=== PATIENT | male | born 1970 | race Caucasian/White ===

== ENCOUNTER 2022-06-20 06:28 | Observation (INO) ==
--- NOTE | 2022-06-08 12:23 | Anesthesiology Consultation ---
Date of Service June 08, 2022 Assessment & Plan (1) Encounter for pre-operative examination: COVID screening: Per assessment on 06/08: No known COVID-19 positive contacts or current COVID-19 related symptoms. Travel screen- returned from [place], [place], [place] (via plane) for work. Patient vaccinated. At surgeon discretion if preop Covid testing being done. Chart Review Chart Review: Acceptable Risk for Surgery and Patient NOT seen in Pre Admission Testing History Surgery Operation Date: 06/20/22 07:55 Proposed Procedures p Robotic Laparoscopic Assisted Radical Retropubic Prostatectomy, Possible Open, Possible Pelvic Lymph Node Dissection, Possible Suprapubic Tube Placement - Alex Bliss MD Height/Weight Height: 5 ft 9 in Weight: 90.718 kg Allergies Allergy/AdvReac Type Severity Reaction Status Date / Time No Known Allergies Allergy Verified 06/20/22 06:48 Medications Home Medications Medication Instructions Recorded Confirmed Last Taken alfuzosin 10 mg tablet,extended 10 mg PO QPM 06/08/22 06/20/22 06/19/22 18:00 release 24 hr Past Medical History Medical History Benign localized prostatic hyperplasia with lower urinary tract symptoms (LUTS) Carcinoma of prostate Elevated PSA Past Family History Family History Mother Ovarian cancer Grandfather (Paternal) Cancer Prostate Cancer Other No family history of adverse response to anesthesia Past Surgical History Surgical History H/O prostate biopsy malignant H/O vasectomy History of colonoscopy 12/2021 History of open reduction and internal fixation (ORIF) procedure right elbow--hardware removed History of tooth extraction History of wisdom tooth extraction Status post hardware removal Social History Smoking Status: Never smoker Do You Dip or Chew Tobacco: No Hx Alcohol Use: Yes Alcohol type: beer alcohol intake frequency: a few times a month Hx Substance Use: No substance use type: does not use Physical Exam Vital Signs Last Vital Signs Temp 37.1 C 06/20/22 06:50 Pulse 85 06/20/22 06:50 Resp 18 06/20/22 06:50 BP 130/76 06/20/22 06:50 Pulse Ox 98 06/20/22 06:50 O2 Del Method 06/20/22 06:50 Lab Results Anesthesia Preop Results Results Anesthesia Widget: WBC 6.30 K/ul (4.8-10.8) 05/23/22 Hgb 15.3 g/dl (14.0-18.0) 05/23/22 Hct 45.4 % (40.1-51.0) 05/23/22 Plt 149 K/uL (130-400) 05/23/22 Na 140 mmol/L (136-145) 05/23/22 K 3.7 mmol/L (3.5-5.1) 05/23/22 Cl 106 mmol/L (98-107) 05/23/22 CO2 30 mmol/L (21-32) 05/23/22 BUN 16 mg/dl (6-23) 05/23/22 Creat 1.00 mg/dl (0.6-1.4) 05/23/22 Glucose Level 94 mg/dl (70-99(Fasting)) 05/23/22 Urine Color Yellow 05/23/22 Urine Appearance Clear (Clear) 05/23/22 Urine pH 6.0 (4.5-7.5) 05/23/22 Urine Specific [place] 1.022 (1.000-1.030) 05/23/22 Urine Protein Negative (Negative) 05/23/22 Urine Glucose (UA) Negative (Negative) 05/23/22 Urine Ketones Negative (Negative) 05/23/22 Urine Blood Negative (Negative) 05/23/22 Urine Nitrite Negative (Negative) 05/23/22 Urine Bilirubin Negative (Negative) 05/23/22 Urine Urobilinogen Negative (Negative) 05/23/22 Urine Leukocyte Esterase Negative (Negative) 05/23/22 SARS-CoV-2, RNA, NAAT NEGATIVE (NEGATIVE) 06/20/22 Blood Type Pending 06/20/22 Antibody Screen Pending 06/20/22 Testing Electrocardiogram Date: 05/23/22 NSR at 72bpm. iRBBB. Chest X-Ray Date: 05/23/22 Findings: + NAD
[~2022-06-20 06:28] MED LIST: HEPARIN SOD 5,000 UNIT/0.5 ML VIAL SQ SCH; LACTATED RINGER'S 1,000 ML IV SCH; ceFAZolin 2000MG 2,000 MG/15 ML SYR IV SCH
[2022-06-20] MEDS ORDERED: LIDOCAINE 2% 20 MG/ML 5 ML SYR IV ONE (06:50)
[2022-06-20] MEDS ORDERED: ROCURONIUM BROMIDE 10 MG/ML 5 ML VIAL IV ONE ×2 (06:50→08:29)
[2022-06-20] MEDS ORDERED: MIDAZOLAM HCL 1 MG/ML 2ML VIAL ONE ×2 (06:50→08:01)
[2022-06-20] MEDS ORDERED: PROPOFOL IV EMULSION 10 MG/ML 20 ML VIAL IV ONE (06:50)
[2022-06-20] MEDS ORDERED: fentaNYL citrate 100 MCG/2 ML VIAL ONE (06:50)
--- NOTE | 2022-06-20 07:03 | History & Physical Report ---
Date of Service June 20, 2022 Assessment & Plan (1) Carcinoma of prostate: Plan: plan for robotic prostatectomy reviewed risks, benefits, and expectations History of Present Illness Primary Care Provider: Graciela Del Angel Gl 6 prostate ca here today for prostatectomy Allergies Allergy/AdvReac Type Severity Reaction Status Date / Time No Known Allergies Allergy Verified 06/20/22 06:48 Home Medications Medication Instructions Recorded Confirmed Type alfuzosin 10 mg tablet,extended 10 mg PO QPM 06/08/22 06/20/22 History release 24 hr Past Med/Surg History Medical History Benign localized prostatic hyperplasia with lower urinary tract symptoms (LUTS) Carcinoma of prostate Elevated PSA Surgical History H/O prostate biopsy malignant H/O vasectomy History of colonoscopy 12/2021 History of open reduction and internal fixation (ORIF) procedure right elbow--hardware removed History of tooth extraction History of wisdom tooth extraction Status post hardware removal Family History Mother Ovarian cancer Grandfather (Paternal) Cancer Prostate Cancer Other No family history of adverse response to anesthesia Social History Smoking Status: Never smoker Second Hand Exposure: Yes (FATHER SMOKED); Do You Dip or Chew Tobacco: No; Hx Alcohol Use: Yes Alcohol type: beer Hx Substance Use: No Preferred Language: Belgian Communication Ability: Effective Hearing Ability: Normal Tree Worker Required: No Beliefs That Will Affect Care: None marital status: Current Living Situation: Spouse and Family Current Living Situation Comment: Lives with and daughter current occupational status: employed How many Children do You have: 1 Other Information That Helps Us Care for You: No Feels Safe at Home: Yes Safety Concerns: Feels Safe At This Time Diet Comment: Intermittent fast during the past year weight has: remained stable Physical Activity Frequency Comment: Bike rides when weather permitting Assistive Devices: Glasses Physical Exam Constitutional: well developed and well nourished Neck: neck nontender Respiratory: normal respiratory effort; no respiratory distress and does not use accessory muscles Cardiovascular: Rate/Rhythm: regular rate Vessels: radial pulses present Extremities: no edema Gastrointestinal (Abdomen): Inspection/Auscultation: abdomen normal to inspection Percussion/Palpation: abdomen soft; abdomen nontender and no guarding Musculoskeletal: Head/Neck/Chest: normocephalic and head atraumatic Extremities: extremities normal to inspection Skin: no rashes and no lesions Trauma: no evidence of skin trauma Neurologic: awake; not obtunded Speech / Cognition: normal speech Motor/Sensory: no tremor Psychiatric: Orientation: alert and oriented x 3 Genitourinary: no CVA tenderness Lymphatic: no lymphadenopathy Results & Data ([facility]) Vital Signs (Past 12 Hours) Vital Signs Temp Pulse Resp BP Pulse Ox O2 Del Method 06/20/22 06:50 37.1 C 85 18 130/76 98 Room Air
[2022-06-20] MEDS ORDERED: ACETAMINOPHEN 1000 MG/100 ML IV IV ONE (07:06)
[2022-06-20] MEDS ORDERED: HYDROmorphone INJ 1 MG/ML SYRINGE IV PRN (07:17)
[2022-06-20] MEDS ORDERED: ATROPINE SULFATE 0.1 MG/ML 10ML SYR IV PRN (07:17)
[2022-06-20] MEDS ORDERED: ONDANSETRON INJ 2 MG/ML 2 ML VIAL IV PRN ×2 (07:17→12:43)
[2022-06-20] MEDS ORDERED: ePHEDrine sulfate 50 MG/ML AMP IV PRN (07:17)
[2022-06-20] MEDS ORDERED: fentaNYL citrate 100 MCG/2 ML VIAL IV PRN (07:17)
[2022-06-20] MEDS ORDERED: BUPIVACAINE 0.5 % 5 MG/1 ML MPF 30ML VIAL ONE (07:36)
[2022-06-20] MEDS ORDERED: KETAMINE 50 MG/5 ML SYRINGE ONE (08:29)
[2022-06-20] MEDS ORDERED: ONDANSETRON INJ 2 MG/ML 2 ML VIAL ONE (08:39)
[2022-06-20] MEDS ORDERED: DEXAMETHASONE SOD INJ 4 MG/ML VIAL ONE (08:39)
[2022-06-20] MEDS ORDERED: NEOSTIGMINE METHYLSULFATE 1 MG/ML 10ML VIAL ONE (09:20)
[2022-06-20] MEDS ORDERED: GLYCOPYRROLATE 0.2 MG/ML VIAL ONE (09:20)
[2022-06-20] MEDS ORDERED: HYDROmorphone INJ 2 MG/ML SYR/VIAL ONE (09:56)
[2022-06-20] MEDS ORDERED: BELLADONNA/OPIUM SUPP 60 MG SUPP PR ONE (10:11)
--- NOTE | 2022-06-20 11:42 | Operative Report ---
PG Post Operative Report Pre & Post Diagnosis Operation Date: 06/20/22 07:55 Pre-Op Diagnosis: Carcinoma of Prostate Post-Op Diagnosis: Carcinoma of Prostate I identified the patient and participated in the time-out.: Yes Procedure Operation Date: 06/20/22 07:55 Actual Procedures p Robotic Laparoscopic Assisted Radical Retropubic Prostatectomy, Bilateral Pel best Lymph Node Dissection(Not Applicable) - Alex Bliss MD Surgeon Alex Bliss MD Senior Buyer Planner Vanessa Chavis Estimated Blood Loss 100 Findings Consistent with Post-Op Diagnosis Specimens 1. Periprostatic fat 2. Right pelvic lymph nodes 3. Left pelvic lymph nodes 4. Prostate and seminal vesicles Description of Procedure The patient was identified in the preoperative holding area, appropriate informed consents were reviewed and completed, and he was transported to the operating suite. Subcutaneous heparin was administered in the pre-operative holding area. Upon arrival in the operating suite, he received appropriate antibiotics and general anesthesia. He was positioned in dorsal lithotomy, a B&O suppository was inserted after digital rectal exam, and he was prepped and draped in standard fashion. A Saunders catheter was inserted in the sterile field. A Veress needle was passed per umbilicus with uniform insufflation of the abdomen to 15mmHg. He was placed in steep Trendelenburg position. A periumbilical incision was then made to accommodate a 12mm Visiport with 10mm 0degree laparoscope. Inspection of the abdomen was carried out, and there was no evidence of traumatic entry or injury secondary to the Veress needle. After confirming a clear anterior abdominal wall, ports were subsequently placed in standard robotic prostatectomy fashion without incident. To begin the robotic portion of the case, the left lateral aspect of the sigmoid was mobilized off of the left pelvic side wall to allow the pouch of Isauro to be appropriately visualized. I then made an incision in the pouch of Isauro, overlying the seminal vesicles. Both SVs as well as the ampullae of the vasa were entirely dissected, with the vasa transected 3cm from the prostate. The medial umbilical ligaments were then controlled with bipolar electrocautery just inferior to the umbilicus. Following cauterization, they were divided utilizing monopolar cautery. A peritoneal incision was carried from this location to the medial aspect of the internal inguinal rings bilaterally with care to avoid opening through the ring. This incision was concluded when the vas deferens was reached. Dissection of the bladder and prostate off of the posterior aspect of the pubic arch was completed allowing full visualization of the prostate. The fat overlying the prostate was removed en bloc and passed off the table as a specimen labeled "periprostatic fat". The endopelvic fascia was cleared during this portion of the procedure, and subsequently opened - first on the right and then the left. The incision through the endopelvic fascia began near the prostate-bladder junction and was carried to the apex with extreme care to preserve all lateral levator musculature as well as the periurethral musculature and sphincter complex. I additionally preserved the puboprostatic ligaments. I then controlled the DVC with a 3-0 V-lock suture in overlapping/ figure of 8 fashion. The lymph node dissection was then conducted. External iliac vessels were identified on the pelvic side wall. The packet of fat and lymphatic tissue that resides just under the iliac vein was elevated and off of the vein with a split and roll technique. The packet was dissected laterally to the circumflex vein and distally to the obturator nerve which was preserved. The proximal aspect of the packet was carried towards the bifurcation of the iliac vessels. A combination of monopolar and bipolar cautery were used to assist with control. After completing the dissection on both sides, the packets were collected and passed off of the table as specimens labeled "pelvic lymph nodes". My attention then returned to the prostate, with identification of the bladder neck aided by gentle traction on the Saunders catheter and lateral to medial pressure at the presumed level of the bladder neck with the robotic instruments. An anterior cystotomy was made, the Saunders balloon deflated and the catheter guided through the incision to allow anterior retraction. I attempted to preserve maximal bladder neck musculature as I circumferentially dissected around the bladder neck. After creating the anterior cystotomy I immediately noted an intravesical median lobe. I carefully dissected around the lateral aspects of this and I utilized a 2-0 Vicryl suture to help elevate the median lobe. This allowed dissection behind the posterior aspect of it with care to avoid encroachment upon the ureteral orifices. After dissecting through the posterior aspect of the bladder mucosa I was able to carried this dissection down until I encountered my prior dissection of the seminal vesicles and vasa. I elevated the structures through the opening and proceeded to narrow the vascular pedicles as I would in a standard case. An incision in the lateral prostatic fascia was then made bilaterally to facilitate control of the vascular pedicles and preservation of the nerve bundles. Vasculature running along the posterior/lateral aspect of the prostate was preserved as well as the tissue containing the nerves. The pedicles were then controlled with a series of Weck clips. The apical attachments of the prostate were remaining at that stage. The DVC was divided after control with bipolar cautery over the prostate. Continuous inspection from anterior and lateral views allowed me to closely follow the apical contour of the prostate and maximally preserve urethral length and tissue. The prostate was entirely freed at that point, and collected in an EndoCatch bag before being moved out of the field of vision. Hemostasis was confirmed and anastomosis of the bladder and urethra was completed utilizing a double armed V- Lock stitch. Of note, prior to anastomosis of the bladder I did place a 3-0 Vicryl hptasl-ml-vlilt suture on each lateral aspect of the bladder neck to reconstruct and narrow it. A new Saunders catheter was inserted and the anastomosis tested with irrigation. There was no evidence of leak. A katherine style stitch was placed bilaterally to functionally marsupialize the area of the lymph node dissection. The robot was undocked, the specimen extracted through expansion of the florencia- umbilical camera port. The fascia was closed with a series of 0-PDS figure of 8 stitches. The right city carrier assistant port was closed in two layers - with a figure of 8 0-Vicryl to reapproximate the fascia followed by 4-0 Monocryl to close the skin. Monocryl was used to close all other skin incisions. All wounds were dressed with Dermabond. The case was concluded and the patient taken to the PACU in stable condition. Vanessa Chavis was present and scrubbed throughout the case I attest to the content of the Intraoperative Record and any orders documented therein. Any exceptions are noted below.
[2022-06-20 12:09] LABS: Hematocrit (blood only) 42.5 % (40.1-51.0); Hemoglobin 14.7 g/dl (14.0-18.0); Mean Corpuscular Hemoglobin 29.8 pg (25.0-34.0); Mean Corpuscular Hgb Conc 34.6 g/dL (32.0-36.0); Mean Platelet Volume 10.7 fL (9.4-12.4); Platelet Count 145 K/uL (130-400); RDW Coefficient of Variation 12.2 % (11.5-14.5); RDW Standard Deviation 38.6 fL (36.4-46.3); Red Blood Count 4.94 M/uL (4.63-6.08); White Blood Count 9.57 K/ul (4.8-10.8)
[2022-06-20 12:32] LABS: Calcium 8.5 mg/dl (8.5-10.1); Creatinine Clr Calc Pharmacy 98.3 ml/min; Est GFR (African American) 101.3 ml/min; Est GFR (Non-African American) 87.4 ml/min; Potassium 4.2 mmol/L (3.5-5.1)
[2022-06-20 12:34] LABS: Basophils # (auto) 0.03 K/uL (0-0.2); Basophils % (auto) 0.3 %; Eosinophils # (auto) 0.01 K/uL (0-0.50); Eosinophils % (auto) 0.1 %; Immature Granulocytes # (auto) 0.03 K/uL (0.00-0.02); Immature Granulocytes % (auto) 0.3 %; Lymphocytes # (auto) 0.47 K/uL (1.2-3.4); Lymphocytes % (auto) 4.9 %; Monocytes # (auto) 0.15 K/uL (0.24-0.82); Monocytes % (auto) 1.6 %; Neutrophils # (auto) 8.88 K/uL (1.4-6.5); Neutrophils % (auto) 92.8 %
[2022-06-20] MEDS ORDERED: oxyCODONE HCL IR 5 MG TAB (IMMEDIATE RELEASE) PO PRN ×2 (12:43)
[2022-06-20] MEDS ORDERED: MoRPHine SULFATE 2 MG/ML CARP IV PRN ×2 (12:43)
--- NOTE | 2022-06-20 13:26 | Anesthesiology Progress Note ---
Date of Service June 20, 2022 Anesthesia Post Procedure Vital Signs Vital Signs: Temp Pulse Pulse Resp BP Pulse Ox O2 Del Method 06/20/22 12:59 83 19 109/63 96 Room Air 06/20/22 12:45 36.3 C L 88 22 100/70 96 Room Air 06/20/22 12:25 80 17 111/62 94 Room Air 06/20/22 12:35 83 17 108/61 94 Room Air 06/20/22 12:15 36.3 C L 70 23 110/61 97 Room Air 06/20/22 12:05 74 20 113/65 97 Room Air 06/20/22 11:55 75 22 127/69 100 Oxymask 06/20/22 11:45 82 18 131/71 100 Oxymask 06/20/22 11:36 36.5 C 92 H 20 130/75 100 Oxymask 06/20/22 06:50 37.1 C 85 18 130/76 98 Room Air O2 Flow Rate 06/20/22 12:59 06/20/22 12:45 06/20/22 12:25 06/20/22 12:35 06/20/22 12:15 06/20/22 12:05 06/20/22 11:55 4 06/20/22 11:45 10 06/20/22 11:36 10 06/20/22 06:50 Transfer of Care Handoff Completed per policy Notes Mental Status: alert / awake / arousable and participated in evaluation Patient Amnestic to Procedure: Yes Nausea / Vomiting: adequately controlled Pain: adequately controlled Airway Patency, RR, SpO2: stable & adequate BP & HR: stable & adequate Hydration State: stable & adequate Anesthetic Complications: no major complications apparent
[2022-06-20] MEDS: ACETAMINOPHEN 325 MG TAB PO SCH ×3 (14:11→23:45)
[2022-06-20] MEDS: LACTATED RINGER'S 1,000 ML IV SCH (14:11)
[2022-06-20] MEDS: ceFAZolin 2000MG 2,000 MG/15 ML SYR IV SCH ×2 (16:23→23:49)
[2022-06-20] MEDS: HEPARIN SOD 5,000 UNIT/0.5 ML VIAL SQ SCH (20:01)
[2022-06-21] MEDS: ACETAMINOPHEN 325 MG TAB PO SCH (05:48)
[2022-06-21] MEDS: LACTATED RINGER'S 1,000 ML IV SCH ×2 (05:58→09:11)
[2022-06-21 07:05] LABS: Basophils # (auto) 0.02 K/uL (0-0.2); Basophils % (auto) 0.2 %; Eosinophils # (auto) 0.05 K/uL (0-0.50); Eosinophils % (auto) 0.5 %; Hematocrit (blood only) 39.3 % (40.1-51.0); Hemoglobin 13.6 g/dl (14.0-18.0); Immature Granulocytes # (auto) 0.02 K/uL (0.00-0.02); Immature Granulocytes % (auto) 0.2 %; Lymphocytes # (auto) 1.27 K/uL (1.2-3.4); Lymphocytes % (auto) 13.5 %; Mean Corpuscular Hemoglobin 30.2 pg (25.0-34.0); Mean Corpuscular Hgb Conc 34.6 g/dL (32.0-36.0); Mean Corpuscular Volume 87.3 fL (80.0-100.0); Mean Platelet Volume 10.5 fL (9.4-12.4); Monocytes # (auto) 0.85 K/uL (0.24-0.82); Monocytes % (auto) 9.1 %; Neutrophils # (auto) 7.17 K/uL (1.4-6.5); Neutrophils % (auto) 76.5 %; Platelet Count 148 K/uL (130-400); RDW Coefficient of Variation 12.2 % (11.5-14.5); RDW Standard Deviation 39.1 fL (36.4-46.3); White Blood Count 9.38 K/ul (4.8-10.8)
[2022-06-21 07:27] LABS: BUN Creatinine Ratio 11.8 (10-20); Calcium 8.6 mg/dl (8.5-10.1); Creatinine Clr Calc Pharmacy 105.7 ml/min; Est GFR (African American) 110.6 ml/min; Est GFR (Non-African American) 95.4 ml/min; Potassium 4.2 mmol/L (3.5-5.1)
[2022-06-21] MEDS: HEPARIN SOD 5,000 UNIT/0.5 ML VIAL SQ SCH (08:05)
[2022-06-21] MEDS ORDERED: DOCUSATE SODIUM 100 MG CAP PO ONE (08:41)
--- NOTE | 2022-06-21 11:23 | Urology Progress Note ---
Date of Service June 21, 2022 Assessment & Plan (1) Carcinoma of prostate: Plan: POD #1 s/p prostatectomy - doing great - d/c home this AM Admission and Anticipated Discharge Date Admission Date: June 20, 2022 Subjective Doing great after his prostatectomy no pain ambulatory hungry anxious to go home urine clear Physical Exam Physical Exam: abd soft, incisions appropriate urine clear Results & Data ([facility]) Vital Signs (Past 12 Hours) Vital Signs Temp Pulse Resp BP Pulse Ox O2 Del Method 06/21/22 10:54 36.6 C 61 18 111/67 96 06/21/22 07:16 36.6 C 61 18 111/67 96 Room Air 06/21/22 02:30 37.1 C 80 18 105/61 95 Room Air PG Care Time/CCT Total # of Minutes Spent Total Time Spent with Patient: Total time spent is greater than 50% in coordination of care (as documented) at patient's floor/unit and/or counseling patient: Coding Level of Care Code None Diagnoses Carcinoma of prostate C61
--- NOTE | 2022-06-23 11:44 | Discharge Summary ---
Date of Service June 23, 2022 Admission HPI Per Admitting Provider Gl 6 prostate ca here today for prostatectomy Principal Diagnosis Prostate cancer Discharge Data Allergies Allergy/AdvReac Type Severity Reaction Status Date / Time No Known Allergies Allergy Verified 06/20/22 06:48 Procedures Performed Operation Date: 06/20/22 07:55 Actual Procedures p Robotic Laparoscopic Assisted Radical Retropubic Prostatectomy, Bilateral Pelvic Lymph Node Dissection(Not Applicable) - Alex Bliss MD Hospital Course (1) Carcinoma of prostate: Plan Patient admitted for a robotic prostatectomy - details of the procedure as dictated previously in my operative report - in summary, he tolerated the procedure very well - he was in stable condition overnight with appropriate urine output and stable labs - he was subsequently discharged home with a peacock catheter - he was in stable condition at the time of discharge Total Time Total Time Spent Total Time Spent (In Minutes): 15 Discharge Plan Discharge Items Patient Disposition: Home - Self-Care Reason For Visit: POST OP Discharge Diagnosis: Prostate cancer, s/p radical prostatectomy Activity: Per Instructions section Lifting: No more than 25 pounds Bathing Comment: Okay to shower after discharge, no tub bath or soaking Sexual Activity: Wait until after follow-up appointment Exercise/Sports: Wait until after follow-up appointment Driving/Machine Use: No driving while taking prescription pain medication Non-emergency contact: Surgeon and Urologist Call non-emergency contact if: your pain is not controlled, your pain is worse cherry, you have a fever, your temperature is above 101, your wound has increased redness, your wound has increased drainage and your wound pain has increased Follow-up/Referrals: Graciela Del Angel [Primary Care Provider] - Diet: Regular Addtl Attending Provider Instructions: Please take all medications as prescribed and keep all follow-ups as scheduled. Please call our office at [phone] with any questions, concerns or need to reschedule appointments for any reason. We are happy to assist you. We have sent an antibiotic (Ciprofloxacin) to your pharmacy of choice. Please begin antibiotic as prescribed the day BEFORE your scheduled voiding trial at [facility]. Please continue antibiotic every 12 hours through the day AFTER your voiding trial. You can discontinue your Alfuzosin. You can take Tylenol 650 mg every 6-8 hours for pain. Do not exceed 3000 mg of Tylenol in 24 hours. A prescription pain medication (Percocet) was sent to your pharmacy to take as needed for breakthrough pain. Do not drive if taking this medication. This medication also contains Tylenol, so do not exceed 3000 mg of Tylenol in 24 hours. Activity: We recommend having someone with you for the first few days after surgery to help care for you. For the first 2 weeks after surgery, we would like you to get up and walk around your house. However, we recommend limit physical activity that would increase your heart rate. This will allow your body to rest and heal. Take naps if you feel tired. Don't lift anything heavier than 10 pounds, mow the law or ride a bicycle until your follow-up appointment. Please avoid long car rides. Home Care: Unless directed otherwise, drink 6 to 8 glasses of water a day (enough to keep your urine light colored). This will also help keep a healthy flow of urine. We recommend using a stool softener for the first two weeks to avoid constipation. Peacock Catheter or Suprapubic Catheter care: Keep the catheter well secured with either a leg back or leg strap with large bag. Empty your bag when it's about half full. You may notice some blood in the bag. This is normal after surgery and while the catheter is in place. Use mild soap (such as Dove or Dial) and water to wash the catheter and the head of your penis daily, or more frequently if needed. Return to your normal diet, we encourage good protein intake to promote healing. You may shower as normal. Please avoid tub baths or soaking until catheter removed and incisions well healed. Wearing sweat pants while you have the catheter is recommended, they will be more comfortable. Follow-up Your follow up appointments for having your catheter removed, and follow up with your physician should already be scheduled. If you have any questions regarding this, please contact our office. Your final pathology report will be discussed at your physician follow-up appointment. Call [facility] at [phone] right away if you have any of the following: Chest pain or trouble breathing (call 482 or go to the hospital) Fever of 101F or higher, uncontrolled vomiting Heavy bleeding, clots, or bright red blood from the catheter Catheter that falls out or stops draining Foul-smelling discharge from your catheter Redness, swelling, warmth, or increased pain at your incision site Drainage, pus, or bleeding from your incision Pending Studies at Discharge: Yes Studies:: Pathology Stand-Alone Forms: [facility], Smoking Cessation Medications and DC Order Prescriptions: New ciprofloxacin HCl 500 mg tablet 500 mg PO BID Qty: 6 0RF Rx Instructions: Start 1 day prior to voiding trial oxycodone-acetaminophen [Percocet] 5-325 mg tablet 1 tab PO TID PRN (Reason: pain) Qty: 7 0RF Discontinued alfuzosin 10 mg tablet extended release 24 hr 10 mg PO QPM Rx Instructions: administer after the same meal each day Discharge Orders: Discharge Order (Routine); Ordered 06/21/22 Ordered By: Vanessa Lima/Other Patient Handouts: Urinary Catheter Bag Empty Clean, Leg Bag Care Dc, ED Peacock Catheter, Care Admission Data Admit Date/Time: 06/20/22 11:30 Attending Provider: Alex Bliss Admit Provider: Alex Bliss Primary Care Provider: Graciela Del Angel Other Interventions: Discharge Summary Assessment (RN) Last Done: 06/21/22 10:54 Coding Level of Care Code D/C DAY MANAGEMENT <30 MINS Diagnoses Carcinoma of prostate C61
== END 2022-06-21 12:22 | disposition home or self-care (01) ==
LOC: ASU 06:28 → PACUINP 11:30 → INTOOBSV 11:30 → 3W 13:25
DX: C61 Malignant neoplasm of prostate